=== PATIENT | male | born 1955 | race Caucasian/White ===

== ENCOUNTER 2017-03-03 18:25 | Inpatient (IN) | payer MEDICAID ==
[~2017-03-03] VITALS: Ht 185.4 cm; Wt 177.3 kg
[~2017-03-03 18:25] MED LIST: BIDIL TABLET1 TAB PO; CARAFATE1 G PO; CATAPRES0.2 MG PO; COREG12.5 MG PO; FUROSEMIDE40 MG PO; GLUCOPHAGE1000 MG PO; GLUCOTROL 5 MG T5 MG PO; HYDRALAZINE HCL50 MG PO; JANUVIA50 MG PO; K-TAB10 MEQ PO; KEFLEX500 MG PO; LASIX80 MG PO; LIPITOR20 MG PO; LOPRESSOR25 MG PO; NORVASC10 MG PO; PLAVIX75 MG PO; PRAVACHOL40 MG PO; PROTONIX40 MG PO; ZAROXOLYN5 MG PO; ZESTRIL40 MG PO
[2017-03-03 19:15] LABS: BASOPHILS 0.3 % (0-2); EOSINOPHILS 8.1 % (0-7); HEMATOCRIT 36.1 % (42.0-54.0); HEMOGLOBIN 11.6 g/dL (13.5-17.5); IMMATURE GRANULOCYTES 0.3 % (0-5); LYMPHOCYTES 9.6 % (15-50); MCH 29.5 pg (26.0-34.0); MCHC 32.1 g/dL (31.0-37.0); MCV 91.9 fL (80.0-100.0); MEAN PLATELET VOLUME 9.8 fL (7.4-10.4); MONOCYTES 5.4 % (2-11); NEUTROPHILS 76.3 % (40-80); PLATELET COUNT 242 10x3/uL (130-400); RBC 3.93 10x6/uL (4.20-6.10); WBC 12.3 10x3/uL (4.8-10.8)
[2017-03-03 19:38] LABS: ALBUMIN 3.3 g/dL (3.4-5.0); BILIRUBIN - TOTAL 0.31 mg/dL (0.2-1.3); CALCIUM 9.1 mg/dL (8.5-10.1); CARBON DIOXIDE 24.6 mmol/L (21.0-32.0); CREATININE - SERUM 4.5 mg/dL (0.6-1.3); PROTEIN - SERUM 8.3 g/dL (6.4-8.2)
[2017-03-03 19:41] LABS: POTASSIUM - SERUM 8.6 mmol/L (3.5-5.1)
[2017-03-03 20:23] LABS: APPEARANCE CLEAR (CLEAR); BILIRUBIN NEGATIVE (NEGATIVE); COLOR YELLOW (YELLOW); GLUCOSE NEGATIVE (NEGATIVE); KETONE NEGATIVE (NEGATIVE); NITRITE NEGATIVE (NEGATIVE); PROTEIN 1+ mg/dL (NEGATIVE); SPECIFIC GRAVITY 1.005 (1.005-1.020); UROBILINOGEN NORMAL (NORMAL)
[2017-03-03 20:25] LABS: EPITHELIAL CELLS 0-5 /hpf (0-5); RED CELLS - URINE 0-5 /hpf (0-5)
[2017-03-04 01:44] VITALS: BP 113/80; BMI 51.5
[2017-03-04 04:00] VITALS: BP 177/93
[2017-03-04 06:18] LABS: BASOPHILS 0.3 % (0-2); HEMOGLOBIN 11.9 g/dL (13.5-17.5); IMMATURE GRANULOCYTES 0.3 % (0-5); LYMPHOCYTES 14.1 % (15-50); MCH 29.8 pg (26.0-34.0); MCHC 32.2 g/dL (31.0-37.0); MCV 92.5 fL (80.0-100.0); MEAN PLATELET VOLUME 9.9 fL (7.4-10.4); MONOCYTES 7.7 % (2-11); NEUTROPHILS 68.6 % (40-80); PLATELET COUNT 237 10x3/uL (130-400); RDW 13.1 % (11.5-14.5); WBC 11.5 10x3/uL (4.8-10.8)
[2017-03-04 06:41] LABS: ANION GAP 18.2 mmol/L (8-16); CALCIUM 10.3 mg/dL (8.5-10.1); CARBON DIOXIDE 18.5 mmol/L (21.0-32.0); CREATININE - SERUM 4.5 mg/dL (0.6-1.3); POTASSIUM - SERUM 5.7 mmol/L (3.5-5.1)
--- NOTE | 2017-03-04 07:00 | NUR ---
REPORT RECEIVED, ASSUMED CARE OF PT. SITTING U PIN BED WATCHING TV, NO NEEDS VOICED AT THIS TIME. BED IN LOWEST POSITION, SIDE RAILS UP X 2, CALL LIGHT WITHIN REACH.
[2017-03-04 09:11] VITALS: BP 183/90
[2017-03-04 10:34] VITALS: Ht 185.4 cm; Wt 177.3 kg
[2017-03-04 11:59] VITALS: BP 178/88
[2017-03-04 16:19] VITALS: BP 148/77
--- NOTE | 2017-03-04 19:15 | NUR ---
RECEIVED CARE FROM DAY NURSE. PT IN BED IN HIGH FOWLERS POSITION. REPORTS NO NEEDS. CALL LIGHT AT SIDE. IV INFUSING TO RIGHT AC.
[2017-03-04 20:00] VITALS: BP 147/86
[2017-03-05 00:57] LABS: CREATININE - URINE 98.8 mg/dL (30-125); POTASSIUM - URINE 26.3 MMOL/L (12.0-62.0)
[2017-03-05 00:58] LABS: PRO/CRE RATIO URINE 3.9 mg/g; PROTEIN - URINE 386.9 mg/dL (0.0-11.9)
--- NOTE | 2017-03-05 03:06 | NUR ---
RESTING QUITLY WITH EYES CLOSED. RESP EVEN AND UNLABORED. CALL LIGHT AT SIDE. IV INFUSING TO PATENT RIGHT AC. UP AD YANELI.
[2017-03-05 04:00] VITALS: BP 130/72
[2017-03-05 06:48] LABS: BASOPHILS 0.5 % (0-2); EOSINOPHILS 9.3 % (0-7); HEMATOCRIT 33.7 % (42.0-54.0); HEMOGLOBIN 10.7 g/dL (13.5-17.5); IMMATURE GRANULOCYTES 0.3 % (0-5); LYMPHOCYTES 21.8 % (15-50); MCH 29.2 pg (26.0-34.0); MCHC 31.8 g/dL (31.0-37.0); MCV 91.8 fL (80.0-100.0); MEAN PLATELET VOLUME 9.9 fL (7.4-10.4); MONOCYTES 7.5 % (2-11); NEUTROPHILS 60.6 % (40-80); PLATELET COUNT 240 10x3/uL (130-400); RBC 3.67 10x6/uL (4.20-6.10); WBC 10.7 10x3/uL (4.8-10.8)
[2017-03-05 07:02] LABS: ANION GAP 20.5 mmol/L (8-16); CALCIUM 8.9 mg/dL (8.5-10.1); CARBON DIOXIDE 18.6 mmol/L (21.0-32.0); CREATININE - SERUM 4.1 mg/dL (0.6-1.3); POTASSIUM - SERUM 5.1 mmol/L (3.5-5.1)
--- NOTE | 2017-03-05 08:00 | NUR ---
REC'D IN BED AWAKE AND ALERT. RESP EVEN AND UNLABORED WITH NO DISTRESS NOTED,. CAN EXPRESS NEEDS AND WANTS. ASSESSMENT COMPLETED. NO C/O NOTE OR VOICED AT THIS. C/L IN REACH AT BEDSIDE.
[2017-03-05 09:57] VITALS: BP 164/81
--- NOTE | 2017-03-05 12:06 | NUR ---
BS 142. NO COVERAGE NEEDED.
[2017-03-05 12:57] VITALS: BP 138/75
--- NOTE | 2017-03-05 15:30 | NUR ---
PT WAS GIVEN SHOWER AT THIS VIA THIS NURSE AND LINEN CHANGED.
[2017-03-05 16:31] VITALS: BP 136/78
--- NOTE | 2017-03-05 18:45 | NUR ---
PATIENT IN BED WITH EYES CLOSED RESTING QUIETLY. NO COMPLAINTS OR SIGNS OF DISTRESS. CALL LIGHT WITHIN REACH.
[2017-03-05 20:00] VITALS: BP 123/69
[2017-03-06] VITALS: BP 122/72
--- NOTE | 2017-03-06 00:13 | NUR ---
REC'D IN BED WATCHING FOOTBALL GAME.DENIES ANY PAIN AT PRESENT TIME.STATES FEELS LITTLE STRONGER TODAY.MONITOR SHOWING SINUS RHYTHM HR 64.WILL CONTINUE TO MONITOR FOR ANY CHGES. AND FOLLOW CURRENT PLAN OF CARE.
[2017-03-06 04:00] VITALS: BP 133/70
[2017-03-06 06:41] LABS: CALCIUM 8.2 mg/dL (8.5-10.1); CARBON DIOXIDE 20.3 mmol/L (21.0-32.0); CREATININE - SERUM 4.2 mg/dL (0.6-1.3); POTASSIUM - SERUM 5.3 mmol/L (3.5-5.1)
--- NOTE | 2017-03-06 07:50 | NUR ---
PT ASSESSMENT COMPLETE AWAKE AND ALERT ORINETD X 3 LUNGS CLEAR BILATERALLY NO DISTRESS NOTED VOICES ALL NEEDS OT STAFF CALL LIGHT INREACH PT EXPRESSED WISHES TO BE DISCHARGED TODAY WILL AWAIT MD ROUNDS.
[2017-03-06 08:45] VITALS: BP 129/59
[2017-03-06 09:11] LABS: BASOPHILS 0.3 % (0-2); EOSINOPHILS 4.2 % (0-7); HEMATOCRIT 31.7 % (42.0-54.0); HEMOGLOBIN 10.5 g/dL (13.5-17.5); LYMPHOCYTES 22.9 % (15-50); MCHC 33.1 g/dL (31.0-37.0); MCV 90.6 fL (80.0-100.0); MEAN PLATELET VOLUME 10.2 fL (7.4-10.4); MONOCYTES 6.2 % (2-11); NEUTROPHILS 65.4 % (40-80); RDW 17.4 % (11.5-14.5)
[2017-03-06 09:12] LABS: PLATELET COUNT 171 10x3/uL (130-400); WBC 3.1 10x3/uL (4.8-10.8)
[2017-03-06 12:41] VITALS: BP 140/77
--- NOTE | 2017-03-06 14:27 | NUR ---
PT SITTING UP ON SIDE OF BED NO ACUTE DISTRESS NOTED PT PENDING DISCHARGE. TELEMETRY NOTED TO CHEST SR NOTED ON MONITOR.
--- NOTE | 2017-03-06 15:50 | NUR ---
PT GIVEN DISCHARGE INSTRUCTIONS AND EXPRESSED UNDERSTANDING OF DIET RESTRICTIONS. PIVS X 2 DISCONTINUED. TELEMETRY REMOVED.
== END 2017-03-06 15:51 | disposition home or self-care (01) | DRG 683 ==
LOC: D.ER 18:25 → D.MS 21:01
PROVIDERS: Emergency Medicine; Family Medicine; Internal Medicine; Physician Assistant Medical; ADMIT Family Medicine
DX: N17.9 Acute kidney failure, unspecified (principal); I13.0 Hypertensive heart and chronic kidney disease with heart failure and stage 1 through stage 4 chronic kidney disease, or unspecified chronic kidney disease; N18.4 Chronic kidney disease, stage 4 (severe); E87.5 Hyperkalemia; E11.22 Type 2 diabetes mellitus with diabetic chronic kidney disease; E11.65 Type 2 diabetes mellitus with hyperglycemia; I50.9 Heart failure, unspecified; E11.21 Type 2 diabetes mellitus with diabetic nephropathy; I25.10 Atherosclerotic heart disease of native coronary artery without angina pectoris; R53.1 Weakness; Z95.810 Presence of automatic (implantable) cardiac defibrillator

== ENCOUNTER 2017-10-05 10:06 | Day surgery (SDC) | payer MEDICAID ==
[~2017-10-05] VITALS: Ht 185.4 cm; Wt 167.8 kg
--- NOTE | ~2017-10-05 | OP ---
PATIENT NAME: RIGO CAT MEDICAL RECORD: [id number] :53 LOCATION:[facility] ADMISSION DATE: SURGEON: RAUL KEITH MD DATE OF OPERATION: 10/05/2017 He is an outpatient and operated and dictated today on 10/05/2017. Referred by Dr. Murdock. PREOPERATIVE DIAGNOSIS: Chronic kidney disease V. POSTOPERATIVE DIAGNOSIS: Chronic kidney disease V. SURGEON: Raul Keith MD ANESTHESIA: Regional block plus general anesthesia with LMA per LEONARD and Dr. Ye. OPERATION PERFORMED: Creation of a right upper extremity Maico type brachiocephalic arteriovenous fistula. PREOPERATIVE NOTE: Mr. Cat is a 61-year-old white male patient with numerous medical problems related to diabetes and atherosclerosis. He has progressed to CKD V and it is thought that he will require dialysis. He is brought to the hospital as an outpatient to the operating room now for creation of a right arm fistula. Under anesthesia in supine position, the patient was prepped and draped in sterile manner. I examined him with Duplex ultrasound after applying a proximal venous tourniquet and applying nitroglycerin paste to the intact skin of his arm and forearm. I confirmed the preoperative impression that the median cubital and cephalic vein at the elbow and upper arm would be suitable for fistula. I made a transverse incision and exposed the cephalic vein and/or median cubital cephalic vein and brachial artery. The vessels were dissected and controlled then with vessel loops and atraumatic clamps. The vein was ligated distally, transected and bevelled, flushed with heparinized saline, treated with topical papaverine and hydrostatically dilated with saline. The artery was occluded with Silastic loops and a vascular clamp was necessary. The artery was opened, noted to have extensive atherosclerosis, but no stenosis of the artery in that area. The artery was flushed proximally and distally with heparinized saline and the vein was then anastomosed end of vein to side of artery with continuous running 7-0 Prolene. When the suture lines were complete and the occluding clamps and loops released, excellent flow was immediately established in the fistula and the suture lines were hemostatic. The wound was irrigated with saline and then approximated with interrupted inverted 3-0 Vicryl and running intracuticular 4-0 Monocryl and Dermabond glue. It was further dressed with Maxorb Ag, Tegaderm and Cavilon skin prep. The patient then was awakened and taken to the recovery room. Blood loss was minimal, 5 cc perhaps, certainly unreplaced. All sponges, instruments, and needles were accounted for. No drain was used and no surgical specimen submitted for histopathology. PLAN: The patient will be discharged to home this evening. He is to return to see me in my office in 2 weeks. He can leave the original dressing intact until then. He is given a prescription for 14 [place] 5/325, he can take 1 or if necessary, 2, p.o. q.4 hours p.r.n. for pain. OPERATIVE REPORT [id number] RIGO CAT TRANSINT:[id number] Voice Confirmation ID: [id number] DOCUMENT ID: [id number] RAUL KEITH MD at 0847 CC: [id number] DICTATION DATE: 10/05/17 184 CUFF STITCHER: 10/05/172127 [facility] 10/05/17 [id number] [place] [address]
[2017-10-05 10:30] LABS: BASOPHILS 0.5 % (0-2); EOSINOPHILS 8.3 % (0-7); HEMATOCRIT 29.3 % (42.0-54.0); HEMOGLOBIN 9.4 g/dL (13.5-17.5); IMMATURE GRANULOCYTES 0.3 % (0-5); LYMPHOCYTES 13.8 % (15-50); MCH 28.6 pg (26.0-34.0); MCHC 32.1 g/dL (31.0-37.0); MCV 89.1 fL (80.0-100.0); MEAN PLATELET VOLUME 10.1 fL (7.4-10.4); MONOCYTES 8.5 % (2-11); NEUTROPHILS 68.6 % (40-80); PLATELET COUNT 171 10x3/uL (130-400); RBC 3.29 10x6/uL (4.20-6.10); RDW 14.9 % (11.5-14.5); WBC 10.2 10x3/uL (4.8-10.8)
[2017-10-05 10:37] LABS: APTT 32.9 SECONDS (22.8-39.4); INR 1.05 (0.85-1.17); PROTIME 13.3 SECONDS (11.6-15.0)
[2017-10-05 11:18] LABS: CALCIUM 8.4 mg/dL (8.5-10.1); CARBON DIOXIDE 22.2 mmol/L (21.0-32.0); CREATININE - SERUM 4.2 mg/dL (0.6-1.3); POTASSIUM - SERUM 5.2 mmol/L (3.5-5.1)
[2017-10-05] MEDS ORDERED: FERREX 28 TABL1 EACH PO (11:59)
[2017-10-05 12:12] VITALS: BP 174/79; Ht 185.4 cm; Wt 167.8 kg
[2017-10-05] MEDS ORDERED: HYDROCODON-ACE1 EAC7 PO (18:39)
== END 2017-10-05 19:35 | disposition home or self-care (01) ==
LOC: D.OPS 10:06
PROVIDERS: Surgery
DX: E11.22 Type 2 diabetes mellitus with diabetic chronic kidney disease (principal); N18.5 Chronic kidney disease, stage 5; E11.65 Type 2 diabetes mellitus with hyperglycemia; I50.9 Heart failure, unspecified; I25.10 Atherosclerotic heart disease of native coronary artery without angina pectoris; Z01.812 Encounter for preprocedural laboratory examination

== ENCOUNTER 2019-11-09 09:37 | Inpatient (IN) | payer MEDICARE ==
[~2019-11-09] VITALS: Ht 185.4 cm; Wt 159.5 kg
--- NOTE | ~2019-11-09 | HEMODYNAMI ---
PATIENT:RIGO REED MEDICAL RECORD: [id number] : 53 LOCATION:[facility] D.2133 ADMISSION DATE: 11/09/19 Generatedon:11/10/201913:09 Patient name: RIGO REED Patient #: [id number] : 1955 Date of study: 11/10/2019 Page: Of Hemodynamic Procedure Report Patient Data Patient Demographics Procedure consent was obtained First Name: RIGO Gender: Male Last Name: DEREK : 1955 [facility] Initial: FLOR Age: 63 year(s) Patient #: [id number] Race: Unknown SSN: [id number] Additional ID: [id number] Contact details [address]: [address] [place] [address] State: [place] City: [place] Zip code: [address] Admission Admission Data Admission Date: 11/09/2019 Admission Time: 13:09 Arrival Date: 11/10/2019 Arrival Time: 0:00 Admit Source: Other Insurance Payor: Medicare Room #: D.2133 [facility] #: [id number] Height (in.): 72 BSA: 2.7 (m2) Height (cm.): 182.88 BMI: 47.47 (kg/m2) Weight (lbs.): 350 Weight (kg.): 158.76 Lab Results Lab Result Date: 11/10/2019 Lab Result Time: 0:00 Biochemistry Name Units Result Min Max BUN mg/dl 56 --(----)-* 7 18 Creatinine mg/dl 7.3 --(----)-* 0.6 1.3 eGFR ml/min 7.664207 *-(----)-- 90 120 NONAFRICAN CBC Name Units Result Min Max Hemoglobin g/dl 12 *-(----)-- 13.5 17.5 Procedure Procedure Types Cath Procedure Diagnostic Procedure LHC LHC w/Coronaries Sedation Charges Procedure Description Procedure Date Procedure Date: 11/10/2019 Procedure Start Time: 12:58 Procedure End Time: 13:08 Procedure Staff Name Function Dez Rapp MD Performing Physician Marianna Wetzel RT Monitor Gena Jerilyn RT Scrub Margarita Meng RN Nurse Procedure Data Cath Procedure Fluoroscopy Diagnostic fluoroscopy Total fluoroscopy Time: 1.4 time: 1.4 min min Diagnostic fluoroscopy Total fluoroscopy dose: 926 dose: 926 mGy mGy Contrast Material Contrast Material Type Amount (ml) Isovue 300 80 Entry Location Entry Primary Successful Side Size Upsize Upsize Entry Closure Succes sful Closure Location (Fr) 1 (Fr) 2 (Fr) Remarks Device Remarks Femoral Right 5 Fr Exoseal artery Estimated blood loss: 10 ml Diagnostic catheters Device Type Used For End Catheter Placement MULTIPACK JL 4.0 5Fr Procedure catheter MULTIPACK 3DRC 5Fr Procedure catheter MULTIPACK Pigtail 5 Fr Ventriculography catheter Procedure Complications No complications Procedure Medications Medication Administration Route Dosage 0.9% NaCl I.V. 100 ml/hr Oxygen etCO2 Nasal cannula 2 l/min Lidocaine 2% added to field 20 Heparin Flush Bag added to field 2 bags (1000units/500ml NS) Versed I.V. 2 mg Fentanyl I.V. 50 mcg Hemodynamics Rest BSA: 2.7 (m2) HGB: 12 (g/dl) O2 Consumption: Estimated: 339.5 (ml/min) O2 Consum ption indexed: Estimated:125.74 (ml/min/m) Heart Rate: 94 (bpm) Pressure Samples Time Site Value (mmHg) Purpose Heart Use Rate(bpm) 13:03 LV 119/21,26 Snapshot 94 Gradients Valve Time Site Site Mean SEP/DFP Peak To Heart Use 1 2 (mmHg) (sec/min) Peak Rate (mmHg) (bpm) Aortic 13:04 LV AO 94 Snapshots Pre Cath Intra NCS Post Cath Vital Signs Time Heart Resp SPO2 etCO2 NIBP (mmHg) Rhythm Pain Sedation Rate (ipm) (%) (mmHg) Status Level (bpm) 12:50:01 95 30 100 32.3 163/63(113) NSR 0 (11) 10(A) , No pain 12:54:38 94 32 100 36 156/72(105) NSR 0 (11) 10(A) , No pain 13:00:07 88 24 97 39.8 145/61(108) NSR 0 (11) 10(A) , No pain 13:04:38 93 24 96 39.1 145/56(94) NSR 0 (11) 10(A) , No pain Medications Time Medication Route Dose Verified Delivered Reason Notes Eff ectiveness by by 12:48:37 0.9% NaCl I.V. 100 Dez Torresa used for ml/hr St Migel Meng procedure MD CHONG 12:48:43 Oxygen etCO2 2 Dez Torresa used for Nasal l/min Mizpah Taqueria procedure cannula MD CHONG 12:48:48 Lidocaine 2% added 20ml Dez Garces for local to vial [facility] anesthetic field MD NAZARIO 12:48:59 Heparin Flush added 2 Dez Garces used for Bag to bags [facility] procedure (1000units/500ml field MD NAZARIO NS) 12:57:52 Versed I.V. 2 mg Dez Torresa for TamelaMigel Meng sedation MD CHONG 12:57:57 Fentanyl I.V. 50 Dez Torresa for mcg Tamela Taqueria sedation MD CHONGdriving teacher Log Time Note 12:24:32 Informed consent obtained and on chart 12:24:53 Procedure Status Urgent Heart Cath (IP). 12:24:56 Time tracking: Regular hours (M-F 7:00 - 5:00) 12:25:00 Plan of Care:Hemodynamics will remain stable., Cardiac rhythm will remain stable., Comfort level will be maintained., Respiratory function will remain adequate., Patient/ family verbilizes understanding of procedure., Procedure tolerated without complication., Recovers from procedure without complications.. 12:25:06 Gena Jean-Baptiste RT(R) sent for patient. Start room use. 12:25:10 H&P Date Dictated: 11/09/2019 ER History on chart.. 12:48:29 Vital chart was started 12:48:37 0.9% NaCl 100 ml/hr I.V. was administered by Margarita Meng RN; used for procedure; Verbal order read back and verified. 12:48:43 Oxygen 2 l/min etCO2 Nasal cannula was administered by Margarita Meng RN; used for procedure; Verbal order read back and verified. 12:48:48 Lidocaine 2% 20ml vial added to field was administered by Dez Rapp MD; for local anesthetic; Verbal order read back and verified. 12:48:59 Heparin Flush Bag (1000units/500ml NS) 2 bags added to field was administered by Dez Rapp MD; used for procedure; Verbal order read back and verified. 12:54:30 Arrival Date: 11/10/2019 12:00:00 AM 12:55:01 Admit Source: Other 12:55:05 Insurance Payor : Medicare 12:55:27 Patient Height : 72 inches 12:55:37 Patient Weight : 350 lbs 12:56:14 Lab Result : Hemoglobin 12 g/dl 12:56:14 Lab Result : eGFR NONAFRICAN 7.159177 ml/min 12:56:14 Lab Result : BUN 56 mg/dl 12:56:14 Lab Result : Creatinine 7.3 mg/dl 12:56:31 Warm blankets applied, and yaneli hugger turned on for patient comfort. 12:56:32 Correct patient and procedure confirmed by team. 12:56:33 Baseline sample Acquired. 12:56:37 Rhythm: sinus rhythm 12:56:38 Full Disclosure recording started 12:56:41 Family in patients room. 12:56:43 Patient NPO since Midnight. 12:56:47 Is the patient allergic to Iodine/contrast media? No. 12:56:49 Was the patient premedicated? Yes 12:56:51 Is patient on blood thinner?No 12:56:57 Patient diabetic? Yes. 12:56:58 If diabetic: On Metformin? No 12:57:04 Snore? Yes 12:57:06 Sleep apnea? No 12:57:10 Dentures? Yes ? 12:57:14 Patient pain scale 0/10 ?. 12:57:23 IV patent on arrival in left hand with 0.9% NaCl at KVO. 12:57:30 Lab results completed and on chart. 12:57:36 Right groin area was prepped with chlora-prep and draped in sterile fashion 12:57:37 Alarms reviewed by R. N. 12:57:37 Sharps counted by scrub and verified by R.N. 12:57:39 Physician arrived 12:57:39 --------ALL STOP TIME OUT------ 12:57:40 Final Timeout: patient, procedure, and site verified with staff and physician. All members of the team are in agreement. 12:57:45 Right groin site verified by team. 12:57:52 Versed 2 mg I.V. was administered by Margarita Meng RN; for sedation; Verbal order read back and verified. 12:57:55 Fire Safety Assessment: A--An alcohol-based skin anteseptic being used preoperatively., B--The operative or invasive procedure is being performed above the xiphoid process or in the oropharynx., C--Open oxygen or nitrous oxide is being used. 12:57:57 Fentanyl 50 mcg I.V. was administered by Margarita Meng RN; for sedation; Verbal order read back and verified. 12:58:00 Physical assessment completed. ASA score P 3 - A patient with severe systemic disease as per Dez Rapp MD. 12:58:03 5) <15 or on dialysis Very severe, or end stage kidney failure. 12:58:06 Maximum allowable contrast dose (3.7 X eGFR X 0.75)0 ml. 12:58:11 Sedation plan: IV Moderate Sedation Medication:Versed, Fentanyl 12:58:18 Use device set Femoral Dx 12:58:22 Procedure started. 12:58:32 Local anesthetic to right femoral artery with Lidocaine 2% by Dez Rapp MD.INITIAL ACCESS ONLY 12:58:41 A 5 Fr sheath was inserted into the Right Femoral artery 12:59:21 A MULTIPACK JL 4.0 5Fr catheter was advanced over the wire and used for Procedure. 12:59:23 ACIST Syringe (44007) opened to sterile field. 12:59:23 Bag Decanter (2001S) opened to sterile field. 12:59:24 Medline Cath Pack ([id number]) opened to sterile field. 12:59:29 ACIST Hand Control (68777) opened to sterile field. 12:59:29 ACIST Manifold (62631) opened to sterile field. 12:59:30 DIAGNOSTIC Multipack 5Fr catheter set (ZX1551) opened to sterile field. 12:59:32 Tegaderm 4 x 4 (1626W) opened to sterile field. 12:59:33 SHEATH 5FR [place] (QMN488) opened to sterile field. 12:59:34 EMERALD Guide Wire (241-509) opened to sterile field. 13:00:03 A MULTIPACK 3DRC 5Fr catheter was advanced over the wire and used for Procedure. 13:00:37 RCA angiography performed. 13:02:20 Catheter removed. 13:02:38 A MULTIPACK Pigtail 5 Fr catheter was advanced over the wire and used for Ventriculography. 13:02:44 LV gram done using GARCIA 13:03:14 Zero performed for pressure channel P1 13:03:58 EF : 15 % 13:04:07 Catheter removed. 13:04:46 Sheath removed intact; hemostasis achieved with Exoseal to the Right Femoral artery. 13:04:49 Procedure ended.(Physican Out) 13:05:00 Fluoroscopy time 01.40 minutes. 13:05:05 Fluoroscopy dose: 926 mGy 13:05:05 Flurop Dose total: 926 13:05:10 Dose Area Product 64161 mGy/cm. 13:05:15 Contrast amount:Isovue 300 80ml. 13:05:21 Maximum allowable dose exceeded? Yes. 13:05:26 Insertion/operative site no bleeding no hematoma. 13:05:30 Post-op/insertion site Right Femoral artery dressed using a 4 x 4 and Tegaderm. 13:05:33 Post Procedure Pulses reassessed and unchanged 13:05:44 Post-procedure physical assessment completed. ASA score P 3 - A patient with severe systemic disease as per Dez Rapp MD. 13:05:48 Post procedure rhythm: unchanged. 13:05:52 Estimated blood loss: 10 ml 13:05:54 Post procedure instruction explained to patient.Patient verbalizes understanding. 13:06:19 Procedure type changed to Cath procedure, Diagnostic procedure, LHC, [facility] w/Coronaries, Sedation Charges 13:07:14 Procedure and supply charges have been captured, reviewed, submitted and are correct. 13:07:24 Procedure Complication : No complications 13:07:46 Vital chart was stopped 13:07:54 [facility] Findings: AICHA- will discuss options w/ pt 13:07:57 Operative report dictated upon procedure completion. 13:07:57 See physician's report for complete and final results. 13:08:00 Report given to [facility]. 13:08:04 Patient transfered to [facility] with Bed. 13:08:07 Procedure ended. 13:08:07 Full Disclosure recording stopped 13:08:11 End room use (Document Last) 13:08:38 PT HAS SKIN TEAR ON RIGHT HIP Device Usage Item Name Manufacture Quantity Catalog Hospital Part Current Minimal L ot# / Number Charge Number Stock Stock Serial# Code MULTIPACK Cardinal 1 [id number] 5 JL 4.0 5Fr Health catheter ACIST Acist 1 25789 641146 990467 776473 20 Syringe Medical (82383) Systems Inc Bag Microtek 1 2001S 683454 32883 941562 5 Decanter Medical Inc. (2001S) Medline Medline 1 [id number] 268300 23301 690237 5 Cath Pack ([id number]) ACIST Hand Acist 1 47009 173978 345106 716653 5 Control Medical (58126) Systems Inc ACIST Acist 1 26201 337386 519551 594925 5 Manifold Medical (05000) Systems Inc DIAGNOSTIC Cardinal 1 KR3935 353605 55869 178234 30 MultipStandard Renewable Energy 5Fr catheter set (CL4227) Tegaderm 4 3M 1 1626W 976994 457269 898988 5 x 4 (1626W) SHEATH 5FR Terumo 1 IJN286 677899 363733 330612 5 [place] (BAS997) EMERALD Cardinal 1 259-477 778691 631913 647846 5 Guide Wire [facility] (263-989) MULTIPACK Cardinal 1 438790 5 3DRC 5Fr Health catheter MULTIPACK Cardinal 1 207097 5 Pigtail 5 Health Fr catheter Signature Audit [place] Stage Time Signature Unsigned Intra-Procedure 11/10/2019 Marianna Wetzel 1:08:53 PM RT(R) Intra-Procedure 11/10/2019 Margarita Meng 1:09:15 PM RN Intra-Procedure 11/10/2019 Dez Mane 1:09:56 PM Migel NAZARIO [id number] [place] [address]
[~2019-11-09 09:37] MED LIST changes: +FERREX 28 TABL1 EACH PO; +HYDROCODON-ACE1 EAC7 PO
[2019-11-09] MEDS ORDERED: GLUCOTROL 5 MG T5 MG PO (09:44)
[2019-11-09] MEDS ORDERED: COREG25 MG PO (09:45)
[2019-11-09] MEDS ORDERED: LIPITOR80 MG PO (09:45)
[2019-11-09] MEDS ORDERED: PEPCID AC20 MG PO (09:45)
[2019-11-09] MEDS ORDERED: ASPIRIN81 MG PO (09:45)
--- NOTE | 2019-11-09 09:52 | NUR ---
PLACE PT IN ISOLATION FOR PUI
[2019-11-09 10:08] LABS: BASOPHILS 0.1 % (0-2); EOSINOPHILS 0 % (0-7); HEMATOCRIT 35.7 % (42.0-54.0); HEMOGLOBIN 11.4 g/dL (13.5-17.5); IMMATURE GRANULOCYTES 0.5 % (0-5); LYMPHOCYTES 3.5 % (15-50); MCH 30.4 pg (26.0-34.0); MCHC 31.9 g/dL (31.0-37.0); MCV 95.2 fL (80.0-100.0); MEAN PLATELET VOLUME 9.8 fL (7.4-10.4); MONOCYTES 5.5 % (2-11); NEUTROPHILS 90.4 % (40-80); PLATELET COUNT 223 10x3/uL (130-400); RBC 3.75 10x6/uL (4.20-6.10); RDW 13.6 % (11.5-14.5); WBC 19.6 10x3/uL (4.8-10.8)
[2019-11-09 10:12] LABS: APTT 33.3 SECONDS (22.8-39.4); CALC OSMOLALITY 295 mosm/kg (275-300); CALCIUM 8.8 mg/dL (8.5-10.1); CARBON DIOXIDE 20.4 mmol/L (21.0-32.0); CHLORIDE - SERUM 97 mmol/L (98-107); CREATININE - SERUM 9.6 mg/dL (0.6-1.3); INR 1.27 (0.85-1.17); POTASSIUM - SERUM 5.5 mmol/L (3.5-5.1); PROTIME 15.8 SECONDS (11.6-15.0); SODIUM 131 mmol/L (136-145); UREA NITROGEN 83 mg/dL (7-18); eGFR NON AFRICAN AMERICAN 6 mL/min (90-120)
[2019-11-09 10:15] VITALS: BP 113/66
[2019-11-09 10:16] LABS: GLUCOSE 242 mg/dL (74-106)
--- NOTE | 2019-11-09 10:17 | NUR ---
RESP. HERE TO DO ABG'S
--- NOTE | 2019-11-09 10:46 | NUR ---
PT AWARE WE NEED URINE SAMPLE
[2019-11-09 11:11] LABS: ALT (SGPT) 18 U/L (10-68)
[2019-11-09 11:12] LABS: ALBUMIN 2.4 g/dL (3.4-5.0); ALKALINE PHOSPHATASE 60 U/L (30-120); BILIRUBIN - TOTAL 1.04 mg/dL (0.2-1.3); CREATINE KINASE 344 UL (21-232); PROTEIN - SERUM 7.8 g/dL (6.4-8.2)
[2019-11-09 11:13] LABS: CKMB 5.3 U/L (0.0-3.6)
[2019-11-09 11:14] LABS: TROPONIN-I 8.696 ng/mL (0.000-0.060)
[2019-11-09 11:18] LABS: BACTERIA MODERATE /hpf (NEGATIVE); BILIRUBIN NEGATIVE (NEGATIVE); GLUCOSE 100 mg/dL (NEGATIVE); KETONE NEGATIVE (NEGATIVE); NITRITE NEGATIVE (NEGATIVE); UROBILINOGEN NORMAL (NORMAL); WHITE CELLS - URINE 25-50 /hpf (NEGATIVE)
--- NOTE | 2019-11-09 11:37 | NUR ---
PT TO CT VIA STRETCHER
[2019-11-09 16:38] VITALS: BMI 20.8
[2019-11-09 16:59] LABS: CKMB 20.9 U/L (0.0-3.6); CREATINE KINASE 452 UL (21-232)
[2019-11-09 17:00] LABS: TROPONIN-I 16.105 ng/mL (0.000-0.060)
[2019-11-09 20:14] VITALS: BP 110/59
[2019-11-09 23:51] LABS: CKMB 20.7 U/L (0.0-3.6); CREATINE KINASE 460 UL (21-232)
[2019-11-09 23:56] LABS: TROPONIN-I 17.562 ng/mL (0.000-0.060)
[2019-11-10 00:19] VITALS: BP 144/87
[2019-11-10 04:45] VITALS: BP 126/63
[2019-11-10 06:15] LABS: HEMATOCRIT 37.1 % (42.0-54.0); MCH 30.7 pg (26.0-34.0); MCHC 32.3 g/dL (31.0-37.0); MCV 94.9 fL (80.0-100.0); MEAN PLATELET VOLUME 10.1 fL (7.4-10.4); PLATELET COUNT 223 10x3/uL (130-400); RBC 3.91 10x6/uL (4.20-6.10); RDW 13.5 % (11.5-14.5)
[2019-11-10 06:17] LABS: WBC 13.4 10x3/uL (4.8-10.8)
--- NOTE | 2019-11-10 06:32 | NUR ---
PT C/O NAUSEA. PROVIDED ZOFRAN PER PRN ORDER. NO FURTHER C/O OR CONCERNS. WILL CPOC.
[2019-11-10 07:05] LABS: CALC OSMOLALITY 290 mosm/kg (275-300); CALCIUM 8.9 mg/dL (8.5-10.1); CARBON DIOXIDE 22.4 mmol/L (21.0-32.0); CHLORIDE - SERUM 99 mmol/L (98-107); CKMB 9.4 U/L (0.0-3.6); CREATINE KINASE 423 UL (21-232); CREATININE - SERUM 7.3 mg/dL (0.6-1.3); GLUCOSE 124 mg/dL (74-106); POTASSIUM - SERUM 4.7 mmol/L (3.5-5.1); SODIUM 137 mmol/L (136-145); TROPONIN-I 18.023 ng/mL (0.000-0.060); UREA NITROGEN 56 mg/dL (7-18); eGFR NON AFRICAN AMERICAN 8 mL/min (90-120)
--- NOTE | 2019-11-10 07:55 | NUR ---
SPOKE WITH [facility] AND NOTIFIED HIM OF PT'S TROPONIN 18.023. HE VERBALIZED UNDERSTANDING.
--- NOTE | 2019-11-10 08:10 | NUR ---
PT COVID NEG.
--- NOTE | 2019-11-10 08:20 | NUR ---
DR. ROTHMAN ROUNDED ON PT AND STATES PT CAN HAVE BREAKFAST TRAY AND THEN WILL BE NPO FOR HEART CATH. PT AWARE.
[2019-11-10 09:42] LABS: LDL-HDL RATIO 2.9 ratio (1.5-3.5)
--- NOTE | 2019-11-10 11:00 | NUR ---
SUPERVISING AIRPLANE PILOT CONSENTS SIGNED AND IN CHART.
[2019-11-10 13:02] LABS: LYMPHOCYTES 9 % (15-50); MONOCYTES 5 % (2-11); NEUTROPHILS 84 % (40-80); PLATELET ESTIMATE NORMAL
--- NOTE | 2019-11-10 13:30 | NUR ---
PT RETURNED FROM BINDER FIXER LAYING FLAT. ALERT AND ORIENTED. RIGHT GROIN SOFT DRESSING C/D/I SHOWS NO S/S OF HEMATOMA. PP CHECKED. WILL CONTINUE TO MONITOR. BED LOW. CL IN REACH. O2 AT 2L VIA NC.
--- NOTE | 2019-11-10 13:35 | NUR ---
BED SCALE BROKEN PT ON BEDREST TILL 1530. WILL WEIGHT PT ON STANDING SCALE THEN AT START DOBUTAMINE DRIP PER PT'S WT.
--- NOTE | 2019-11-10 13:45 | NUR ---
RIGHT GROIN SOFT DRESSING C/D/I. WILL CONTINUE TO MONITOR.
[2019-11-10 14:04] VITALS: Ht 185.4 cm; Wt 159.5 kg
--- NOTE | 2019-11-10 15:10 | NUR ---
PT TRANSFERED INTO [place] BED. X2 ATTEMPTS MADE TO INSERT IV BUT PT HIT NURSE THE FIRST ATTEMPT AND PULLED ARM AND IV CAME OUT. BAFFLE INSTALLER HELD PT'S ARMS THEN PT STILL MOVED ARM AND THEN KNEED THIS NURSE IN THE HEAD. ANOTHER NURSE CAN TRY TO GET IV.
--- NOTE | 2019-11-10 15:48 | NUR ---
DOBUTMAINE DRIP STARTED AT 24ML/HR INFUSING THROUGHT LEFT AC IV. PT SR ON THE TELEMETRY. WILL COTNINUE TO MONITOR.
--- NOTE | 2019-11-10 18:04 | NUR ---
I have reviewed this patient and I concur with the Shift Assessment completed by the Licensed Practical Nurse today this shift.
--- NOTE | 2019-11-10 18:27 | NUR ---
MOVED PT TO ROOM 2123. PT'S AT BEDSIDE. BED LOW. CL IN REACH.
--- NOTE | 2019-11-10 19:37 | NUR ---
REPORT RECEIVED AND ROUNDING COMPLETE. PATIENT LAYING IN BED IN LOW FOWLERS A&O X4 AT BEDSIDE, PATIENT WEARING NASAL CANNULA WITH O2 AT 2L, L AC PIV PATENT WITH FLUIDS RUNNING. NO DISTRESS NOTED AND NO NEEDS VOICED. RIGHT GROIN DRESSINF C/D/I. CALL LIGHT WITHIN REACH AND BED IN LOWEST LOCKED POSITION.
[2019-11-10 20:00] VITALS: BP 156/48
[2019-11-11] VITALS: BP 108/64
[2019-11-11 04:00] VITALS: BP 122/64
--- NOTE | 2019-11-11 07:00 | NUR ---
RECEIVED REPORT. ASSUMED CARE OF PATIENT. CALL LIGHT WITHIN REACH. PATIENT RESTING WITH EYES CLOSED, EASILY AROUSED. DIALYSIS SCHEDULED FOR TODAY. PATIENT DENIES NEEDS AT THIS TIME. WHITE BOARD UPDATED. BEDSIDE SHIFT REPORT COMPLETE.
[2019-11-11 07:05] LABS: BILIRUBIN - TOTAL 0.71 mg/dL (0.2-1.3); CARBON DIOXIDE 25.1 mmol/L (21.0-32.0); CREATININE - SERUM 8.9 mg/dL (0.6-1.3); POTASSIUM - SERUM 4.1 mmol/L (3.5-5.1); PROTEIN - SERUM 6.7 g/dL (6.4-8.2)
--- NOTE | 2019-11-11 07:30 | NUR ---
FRESH ICE WATER PROVIDED UPON REQUEST.
[2019-11-11 09:09] VITALS: BP 117/55
[2019-11-11 11:05] VITALS: BP 159/52
--- NOTE | 2019-11-11 11:18 | NUR ---
fsbs 156. 2 units humulin administered per sliding scale.
--- NOTE | 2019-11-11 13:36 | OP ---
PATIENT NAME: RIGO REED MEDICAL RECORD: [id number] :53 LOCATION:D.M2 D.4 ADMISSION DATE:11/09/19 SURGEON: SARAH ROTHMAN MD DATE OF OPERATION: 11/10/2019 PROCEDURE: Left heart catheterization, selective coronary angiography, right femoral artery approach. CATHETERS: A 5-Taiwanese sheath, 5/4 left and right Robert, 5/4 pig. The procedure was well tolerated. The patient was returned to [place]. Sheath removed. ExoSeal device placed. FINDINGS: Left ventriculography in 30-degree GARCIA view shows severe global hypokinesis, reduced EF 10% to 15%. CORONARY ANATOMY: LEFT MAIN: About a 60% ostial stenosis extending to the LAD and involving the circumflex itself, 90% of the circumflex, LAD 60%. RIGHT CORONARY ARTERY: Dominant artery, severe diffuse disease. IMPRESSION: Severe disease. Does not appear amenable to bypass grafting, would be high risk for intervention. We will try to improve LV function with Dobutrex medications. Could consider high-risk intervention under Impella or balloon pump backup, although still it would be extremely high risk. We will follow him clinically. NTS:[id number] Voice Confirmation ID: [id number] DOCUMENT ID: [id number] SARAH ROTHMNA MD at 1336 CC: [id number] DICTATION DATE: 11/10/19 1312 SENIOR TAX SPECIALIST: 11/10/19 2237 ADM IN [id number] [place] [address]
--- NOTE | 2019-11-11 13:37 | CN ---
PATIENT NAME:RIGO REED MEDICAL RECORD: [id number] : 53 LOCATION:D. D.2124 ADMIT DATE: 11/09/19 ACCOUNT: [id number] CONSULTING PHYSICIAN: SARAH ROTHMAN MD REFERRING PHYSICIAN: SANYA HUERTA MD DATE OF CONSULTATION: 11/10/2019 HISTORY OF PRESENT ILLNESS: A 63-year-old gentleman with a history of coronary artery disease as well as cardiomyopathy, status post defibrillator admitted with actually abdominal pain. He reports that sometimes this is how his coronary artery disease presents, subsequently found to have elevated cardiac enzymes, troponin of 18. Has a known cardiomyopathy as described above. Symptomatology has really only been present for the past 2-3 days. He has also had some volume overload symptomatology, although he did miss dialysis. We are asked to see him concerning his cardiovascular status. PAST MEDICAL HISTORY: 1. History of end-stage renal disease. 2. Hypertension. 3. Dyslipidemia. 4. Diabetes mellitus. ALLERGIES: PENICILLIN AND SULFA. MEDICATIONS: Include Januvia 50 mg p.o. q. day, glipizide 5 mg p.o. b.i.d., aspirin 81 q. day, hydralazine 50 t.i.d., atorvastatin 80 q. day, carvedilol 25 q. day. SOCIAL HISTORY: Nonsmoker, nondrinker. He is able to take care of all his ADLs. PHYSICAL EXAMINATION: GENERAL: Pleasant, in no acute distress, appears stated age. VITAL SIGNS: 126/63, pulse 98 and regular. HEENT: Normocephalic, atraumatic. NECK: No JVD or bruit. HEART: Regular, II/ systolic ejection murmur, questionable S3 gallop. LUNGS: Fair air excursion. ABDOMEN: Soft, nontender. EXTREMITIES: Pulses 1+ with 2+ edema. IMPRESSION: NSTEMI, known history of coronary artery disease. PLAN: Angiography, intervention based on above. NTS:[id number] Voice Confirmation ID: [id number] DOCUMENT ID: [id number] CONSULT REPORT [id number] RIGO REED SARAH ROTHMAN MD at 1337 CC: [id number] DICTATION DATE: 11/10/19 0933 LIFE SCIENCES INSTRUCTOR: 11/10/192013 ADM IN [facility] [address] [place] [address]
[2019-11-11 16:12] VITALS: BP 145/43
--- NOTE | 2019-11-11 16:42 | NUR ---
FSBS 129. NO INSULIN PER SLIDING SCALE.
[2019-11-11 20:00] VITALS: BP 127/65
[2019-11-12] VITALS: BP 148/41
[2019-11-12 04:00] VITALS: BP 112/47
[2019-11-12 07:56] LABS: BASOPHILS 0.2 % (0-2); EOSINOPHILS 1.6 % (0-7); IMMATURE GRANULOCYTES 0.8 % (0-5); LYMPHOCYTES 7.1 % (15-50); MCH 30.1 pg (26.0-34.0); MCV 94.2 fL (80.0-100.0); MEAN PLATELET VOLUME 10.2 fL (7.4-10.4); MONOCYTES 12.4 % (2-11); NEUTROPHILS 77.9 % (40-80); PLATELET COUNT 203 10x3/uL (130-400); RDW 13.6 % (11.5-14.5)
[2019-11-12 07:57] LABS: HEMATOCRIT 29.1 % (42.0-54.0); HEMOGLOBIN 9.3 g/dL (13.5-17.5); RBC 3.09 10x6/uL (4.20-6.10); WBC 8.5 10x3/uL (4.8-10.8)
[2019-11-12 09:00] VITALS: BP 103/47
[2019-11-12 13:36] VITALS: BP 115/39
--- NOTE | 2019-11-12 13:38 | NUR ---
Nutrition Follow-up: Pt remains on clear liquid diet; noted pt with possible epiploic appendagitis. Reports N/V this AM before breakfast; tolerated clear liquids. HD yesterday (-2 L). Diet: Clear Liquid Wt: 392# (11/11) Last BM: 11/05 Labs noted (11/10): Na 135, K+ 4.1, Ca 8.0, Alb 2.0; Glu 173 (11/11) Meds noted: Protonix, Humulin, Zofran -If unable to advance diet, rec consider nutrition support as medically feasible; RD available to assist as needed. -Monitor wt; noted daily wts ordered. -RD following.
--- NOTE | 2019-11-12 14:02 | NUR ---
LAYING ON BACK WITH NURSE TO NURSE BEDSIDE SHIFT REPORT. DENIES NEEDS AT THIS TIME. ON 2L PER NC. SR ON HEART MONITOR.
[2019-11-12 19:11] VITALS: BP 128/57
[2019-11-12 20:00] VITALS: BP 133/73
[2019-11-13 04:00] VITALS: BP 122/65
[2019-11-13 06:27] LABS: BASOPHILS 0.2 % (0-2); EOSINOPHILS 3.7 % (0-7); HEMATOCRIT 29.7 % (42.0-54.0); HEMOGLOBIN 9.4 g/dL (13.5-17.5); IMMATURE GRANULOCYTES 0.7 % (0-5); MCH 30.3 pg (26.0-34.0); MCHC 31.6 g/dL (31.0-37.0); MCV 95.8 fL (80.0-100.0); NEUTROPHILS 71.4 % (40-80); PLATELET COUNT 230 10x3/uL (130-400); RDW 13.6 % (11.5-14.5); WBC 8.5 10x3/uL (4.8-10.8)
[2019-11-13 07:56] LABS: ANION GAP 13.6 mmol/L (8-16); CALCIUM 7.7 mg/dL (8.5-10.1); CARBON DIOXIDE 26.4 mmol/L (21.0-32.0); CREATININE - SERUM 8.8 mg/dL (0.6-1.3)
[2019-11-13 18:20] VITALS: BP 118/66
--- NOTE | 2019-11-13 19:15 | NUR ---
PT CURRENTLY IN DIALYSIS.
[2019-11-13 20:00] VITALS: BP 166/54
--- NOTE | 2019-11-13 20:26 | NUR ---
BACK TO ROOM FROM DIALYSIS. CHICKEN BROTH GIVEN AT PT REQUEST, DENIES ANY OTHER NEEDS.
[2019-11-14] VITALS: BP 169/55
[2019-11-14 04:00] VITALS: BP 124/40
[2019-11-14 06:50] LABS: BASOPHILS 0.5 % (0-2); EOSINOPHILS 3.4 % (0-7); HEMATOCRIT 31.3 % (42.0-54.0); IMMATURE GRANULOCYTES 0.9 % (0-5); LYMPHOCYTES 13.9 % (15-50); MCH 30.7 pg (26.0-34.0); MCHC 31.9 g/dL (31.0-37.0); MEAN PLATELET VOLUME 9.8 fL (7.4-10.4); MONOCYTES 13.7 % (2-11); NEUTROPHILS 67.6 % (40-80); PLATELET COUNT 250 10x3/uL (130-400); RBC 3.26 10x6/uL (4.20-6.10); RDW 13.6 % (11.5-14.5); WBC 9.4 10x3/uL (4.8-10.8)
[2019-11-14 08:01] VITALS: BP 170/39
--- NOTE | 2019-11-14 12:14 | NUR ---
PT IN DIALYSIS. LINENS IN ROOM CHANGED.
--- NOTE | 2019-11-14 16:01 | MORECARE ---
CASE MANAGEMENT DISCHARGE SUMMARY PATIENT: RIGO REED UNIT: [id number] ADM DATE: 11/09/19 AGE: 63 : 53 SEX: M ROOM/BED: D.2124 AUTHOR: SOSA PETTY PHYSICIAN: REFERRING PHYSICIAN: SANYA HUERTA MD DATE OF SERVICE: 11/14/19 Discharge Plan Patient Name: RIGO REED [facility] [facility] 1955 Planned Disposition: Anticipated Discharge Date: Discharge Date: Expected LOS: Initial Reviewer: [email or web address] Initial Review Date: 11/09/2019 Generated: 11/14/19 5:01 pm DCPIA - Discharge Planning Initial Assessment Updated by [email or web address]: Lissa Aquino on 11/14/19 4:01 pm * Is the patient Alert and Oriented? Yes * How many steps to enter\exit or inside your home? 0/0 * PCP Roopa Monsalve APN * Pharmacy [facility] * Preadmission Environment Home with Family * ADLs Independent * Equipment None * Community resources currently utilized None * Additional services required to return to the preadmission environment? Yes * Can the patient safely return to the preadmission environment? Yes * Has this patient been hospitalized within the prior 30 days at any hospital? No Patient Name: RIGO REED Page [id number] at 1601 All edits/amendments must be made on the electronic document DICTATION DATE: 11/14/19 160 COOK SEAFOOD: SHERMAN 11/14/19 1601 RPT#: [id number] DC DATE: STATUS: ADM IN [facility] [address] [place] [address] END OF REPORT
--- NOTE | 2019-11-14 16:10 | MORECARE ---
CASE MANAGEMENT DISCHARGE SUMMARY PATIENT: RIGO REED UNIT: [id number] ADM DATE: 11/09/19 AGE: 63 : 54 SEX: M ROOM/BED: D.3973 AUTHOR: SOSA PETTY PHYSICIAN: REFERRING PHYSICIAN: SANYA HUERTA MD DATE OF SERVICE: 11/14/19 Discharge Plan Patient Name: RIGO REED Facility: [facility]:[place] : 1955 Planned Disposition: Anticipated Discharge Date: Discharge Date: Expected LOS: Initial Reviewer: [email or web address] Initial Review Date: 11/09/2019 Generated: 11/14/19 5:10 pm Comments DCP- Discharge Planning Updated by [email or web address]: Lissa Aquino on 11/14/19 3:[address] Patient Name: RIGO REED Admission Status: ER Accout number: [id number] Admission Date: 11-09-2019 : 1955 Admission Diagnosis:SHORTNESS OF BREATH Attending: SANYA HUERTA Current LOS: 5 Anticipated DC Date: Planned Disposition: Primary Insurance: MEDICARE A & B Discharge Planning Comments: CM met with patient to complete initial dc planning assessment. CM educated patient on the CM role and verbal consent given by patient to complete assessment. CM verified patient's address, phone number, and emergency contact phone numbers. Patient lives at home with his and is independent for his ADL's. At discharge patient plans to return home and feels this is a safe discharge. CM discussed availability of home health, rehab services, and medical equipment. Patient denied known discharge needs at this time. Declination signed. Transportation provider at discharge will be Dolly [phone] . CM called Danuta Dialysis Coordinator about DC. Danuta states he will resume his normal dialysis schedule T// at 0600. CM instructed pt to be at his regular appointment. Pt denies any transportation issues, or barriers to resumption of dialysis. DC IMM delivered, explained, signed by the patient, and placed in chart. Signed form also left with the patient. CM will continue to follow and will assist as needed with dc plans/needs. Senior Front End Web Developer: Lissa Aquino DCPIA - Discharge Planning Initial Assessment Updated by [id number]: Lissa Aquino on 11/14/19 4:01 pm * Is the patient Alert and Oriented? Yes * How many steps to enter\exit or inside your home? 0/0 * PCP Roopa Monsalve APN * Pharmacy [facility] * Preadmission Environment Home with Family * ADLs Independent * Equipment None * Community resources currently utilized None * Additional services required to return to the preadmission environment? Yes * Can the patient safely return to the preadmission environment? Yes * Has this patient been hospitalized within the prior 30 days at any hospital? No Coverage Notice Reviewer: [email or web address] Ezequiel Aquino Notice Issued Date-Time: 11/14/2019 16:00 Notice Type: IM Discharge Notice Notice Delivered To: Patient Relationship to Patient: Supervisor Inventory Merchandising Name: Delivery Method: HAND - Hand Delivered Adri Days: Prior Verbal Notification: Recipient Understood Notice: Yes Recipient Signature: Yes Med Rec Note Co-signed by Attending: Coverage Notice Comment: dc imm Reviewer: [id number] Ezequiel Aquino Notice Issued Date-Time: 11/14/2019 16:00 Notice Type: Patient Choice Letter Notice Delivered To: Patient Relationship to Patient: Supervisor Inventory Merchandising Name: Delivery Method: HAND - Hand Delivered Adri Days: Prior Verbal Notification: Recipient Understood Notice: Yes Recipient Signature: Yes Med Rec Note Co-signed by Attending: Coverage Notice Comment: declination for hh. resumption of dialysis schedule Last DP export: 11/14/19 3:01 p Patient Name: RIGO REED Page [id number] at 1610 All edits/amendments must be made on the electronic document DICTATION DATE: 11/14/19 1610 HOOK TENDER: SHERMAN 11/14/19 1610 RPT#: [id number] DC DATE: STATUS: ADM IN [facility] [address] [place] [address] END OF REPORT
--- NOTE | 2019-11-14 16:59 | NUR ---
DISCHARGE PAPERWORK SIGNED, ALL QUESTIONS ANSWERED. IV TO LEFT AC DC'D, TIP INTACT. ESCORTED OUT VIA WHEELCHAIR.
--- NOTE | 2019-11-17 09:26 | MORECARE ---
CASE MANAGEMENT DISCHARGE SUMMARY PATIENT: RIGO REED UNIT: [id number] ADM DATE: 11/09/19 AGE: 63 : 53 SEX: M ROOM/BED: D.1048 AUTHOR: SOSA PETTY PHYSICIAN: REFERRING PHYSICIAN: SANYA HUERTA MD DATE OF SERVICE: 11/17/19 Discharge Plan Patient Name: RIGO REED Facility: [facility]:[place] : 1955 Planned Disposition: Anticipated Discharge Date: Discharge Date: 11/14/2019 Expected LOS: Initial Reviewer: [email or web address] Initial Review Date: 11/09/2019 Generated: 11/17/19 10:26 am Comments DCP- Discharge Planning Updated by [id number]: Lissa Aquino on 11/14/19 3:[address] Patient Name: RIGO REED Admission Status: ER Accout number: [id number] Admission Date: 11-09-2019 : 1955 Admission Diagnosis:SHORTNESS OF BREATH Attending: SANYA HUERTA Current LOS: 5 Anticipated DC Date: Planned Disposition: Primary Insurance: MEDICARE A & B Discharge Planning Comments: CM met with patient to complete initial dc planning assessment. CM educated patient on the CM role and verbal consent given by patient to complete assessment. CM verified patient's address, phone number, and emergency contact phone numbers. Patient lives at home with his and is independent for his ADL's. At discharge patient plans to return home and feels this is a safe discharge. CM discussed availability of home health, rehab services, and medical equipment. Patient denied known discharge needs at this time. Declination signed. Transportation provider at discharge will be [place] [phone] . CM called Danuta Dialysis Coordinator about DC. Danuta states he will resume his normal dialysis schedule T// at 0600. CM instructed pt to be at his regular appointment. Pt denies any transportation issues, or barriers to resumption of dialysis. DC IMM delivered, explained, signed by the patient, and placed in chart. Signed form also left with the patient. CM will continue to follow and will assist as needed with dc plans/needs. Project Buyer: Lissa Aquino DCPIA - Discharge Planning Initial Assessment Updated by [email or web address]: Lissa Aquino on 11/14/19 4:01 pm * Is the patient Alert and Oriented? Yes * How many steps to enter\exit or inside your home? 0/0 * PCP Roopa Monsalve APN * Pharmacy [facility] * Preadmission Environment Home with Family * ADLs Independent * Equipment None * Community resources currently utilized None * Additional services required to return to the preadmission environment? Yes * Can the patient safely return to the preadmission environment? Yes * Has this patient been hospitalized within the prior 30 days at any hospital? No Coverage Notice Reviewer: [id number] Ezequiel Aquino Notice Issued Date-Time: 11/14/2019 16:00 Notice Type: IM Discharge Notice Notice Delivered To: Patient Relationship to Patient: Automatic Coin Machine Mechanic Name: Delivery Method: HAND - Hand Delivered Adri Days: Prior Verbal Notification: Recipient Understood Notice: Yes Recipient Signature: Yes Med Rec Note Co-signed by Attending: Coverage Notice Comment: dc imm Reviewer: [email or web address] Ezequiel Aquino Notice Issued Date-Time: 11/14/2019 16:00 Notice Type: Patient Choice Letter Notice Delivered To: Patient Relationship to Patient: Automatic Coin Machine Mechanic Name: Delivery Method: HAND - Hand Delivered Adri Days: Prior Verbal Notification: Recipient Understood Notice: Yes Recipient Signature: Yes Med Rec Note Co-signed by Attending: Coverage Notice Comment: declination for hh. resumption of dialysis schedule Last DP export: 11/14/19 3:10 p Patient Name: RIGO REED Page [id number] at 0926 All edits/amendments must be made on the electronic document DICTATION DATE: 11/17/19925 TRANSIT PLANNING MANAGER: SHERMAN 11/17/19925 RPT#: [id number] DC DATE:11/14/19 STATUS: DIS IN [facility] [address] [place] [address] END OF REPORT
== END 2019-11-14 17:00 | disposition home or self-care (01) | DRG 280 ==
LOC: D.ER 09:37 → D.M2 13:09
PROVIDERS: Family Medicine; Internal Medicine Interventional Cardiology; ADMIT Internal Medicine Nephrology; ATTEND Internal Medicine Nephrology
PROC: 5A1D70Z Performance of Urinary Filtration, Intermittent, Less than 6 Hours Per Day (ICD-10-PCS; 2019-11-09)
PROC: B2151ZZ Fluoroscopy of Left Heart using Low Osmolar Contrast (ICD-10-PCS; 2019-11-10)
PROC: 4A023N7 Measurement of Cardiac Sampling and Pressure, Left Heart, Percutaneous Approach (ICD-10-PCS; 2019-11-10)
PROC: B2111ZZ Fluoroscopy of Multiple Coronary Arteries using Low Osmolar Contrast (ICD-10-PCS; principal; 2019-11-10 12:25)
DX: I21.4 Non-ST elevation (NSTEMI) myocardial infarction (principal); N18.6 End stage renal disease; N39.0 Urinary tract infection, site not specified; I12.0 Hypertensive chronic kidney disease with stage 5 chronic kidney disease or end stage renal disease; E87.1 Hypo-osmolality and hyponatremia; K63.89 Other specified diseases of intestine; E11.22 Type 2 diabetes mellitus with diabetic chronic kidney disease; Z99.2 Dependence on renal dialysis; I25.10 Atherosclerotic heart disease of native coronary artery without angina pectoris; D63.1 Anemia in chronic kidney disease